=== PATIENT | female | born 1930 | race Caucasian/White ===

== ENCOUNTER 2016-12-10 20:19 | Emergency (ER) | payer OTHER ==
[~2016-12-10] VITALS: Ht 172.7 cm; Wt 72.4 kg
[~2016-12-10 20:19] MED LIST: ADULT LOW DOSE81 M1 PO; LIPITOR80 MG PO; METOPROLOL TART25 MG PO; OMEGA 3 1,0001 EACH PO; ZESTRIL,PRINIVI10 MG PO
[2016-12-10 23:40] VITALS: BP 190/88
== END 2016-12-10 23:41 | disposition home or self-care (01) ==
LOC: RME 20:19 → EME 20:19 → RME 23:41
PROC: 0HQGXZZ Repair Left Hand Skin, External Approach (ICD-10-PCS; principal; 2016-12-10)
DX: S61.215A Laceration without foreign body of left ring finger without damage to nail, initial encounter (principal); W29.3XXA Contact with powered garden and outdoor hand tools and machinery, initial encounter; Y93.H9 Activity, other involving exterior property and land maintenance, building and construction; Z91.048 Other nonmedicinal substance allergy status
CPT/HCPCS: 73140; 99281; 99284; S0020

== ENCOUNTER 2017-08-30 21:48 | Inpatient (IN) | payer OTHER ==
[~2017-08-30] VITALS: Ht 167.6 cm; Wt 53.7 kg
[~2017-08-30 21:48] MED LIST changes: +LISINOPRIL10 MG PO; -ZESTRIL,PRINIVI10 MG PO
[2017-08-30 23:08] LABS: HEMATOCRIT 39.9 % (36.0-46.0); HEMOGLOBIN 13.2 G/DL (11.9-15.5); MCH 31.1 PG (29.0-34.0); MCHC 33.1 G/DL (30.0-36.0); MCV 93.9 FL (83-99); PLATELET COUNT 234 K/uL (156-360); RBC DIS.WIDTH-CV 12.9 % (11.8-14.6); RBC DIS.WIDTH-SD 44.2 % (39-53); RED BLOOD COUNT 4.25 M/uL (3.80-5.20); WHITE BLOOD COUNT 15.5 K/uL (4.1-10.2)
[2017-08-30 23:30] LABS: CHLORIDE 102 MEQ/L (99-109); CREATININE 0.6 MG/DL (0.6-1.3); GFR ESTIMATE (CALCULATED) > 59 mL/min/; GLUCOSE 169 mg/dL (70-99); POTASSIUM 3.7 MEQ/L (3.7-5.4); SODIUM 138 MEQ/L (136-147); UREA NITROGEN (BUN) 13 mg/dL (9-23)
[2017-08-30 23:33] LABS: TROP-I INTERPRETATION NEGATIVE; TROPONIN-I 0.01 ng/mL (0.0-0.30)
[2017-08-31 00:49] LABS: ALKALINE PHOSPHATASE 213 IU/L (3-129); ALT (GPT) 169 IU/L (3-49); AST (GOT) 458 IU/L (2-34); DIRECT BILIRUBIN 0.3 mg/dL (0.0-0.3); LIPASE 30 U/L (1.0-51.0); TOTAL BILIRUBIN 0.8 MG/DL (0.0-1.0); TOTAL PROTEIN 6.4 G/DL (6.4-8.3)
[2017-08-31] MEDS ORDERED: SYNTHROID50 MCG PO (01:09)
[2017-08-31] MEDS ORDERED: PRAVACHOL20 MG PO (01:09)
[2017-08-31] MEDS ORDERED: ZANTAC150 MG PO (01:10)
[2017-08-31 01:22] LABS: TROP-I INTERPRETATION NEGATIVE; TROPONIN-I < 0.01 ng/mL (0.0-0.30)
[2017-08-31 05:41] VITALS: BP 173/75
[2017-08-31 08:00] VITALS: BP 124/56
[2017-08-31 08:45] LABS: HEMATOCRIT 37.5 % (36.0-46.0); HEMOGLOBIN 12.2 G/DL (11.9-15.5); MCH 30.2 PG (29.0-34.0); MCHC 32.5 G/DL (30.0-36.0); MCV 92.8 FL (83-99); PLATELET COUNT 218 K/uL (156-360); RBC DIS.WIDTH-CV 13.1 % (11.8-14.6); RBC DIS.WIDTH-SD 44.8 % (39-53); RED BLOOD COUNT 4.04 M/uL (3.80-5.20); WHITE BLOOD COUNT 13.4 K/uL (4.1-10.2)
[2017-08-31 09:08] LABS: CHLORIDE 102 MEQ/L (99-109); CREATININE 0.7 MG/DL (0.6-1.3); GFR ESTIMATE (CALCULATED) > 59 mL/min/; GLUCOSE 165 mg/dL (70-99); POTASSIUM 4.2 MEQ/L (3.7-5.4); SODIUM 133 MEQ/L (136-147); UREA NITROGEN (BUN) 13 mg/dL (9-23)
[2017-08-31 12:00] VITALS: BP 134/61
[2017-08-31 13:14] LABS: APPEARANCE SL.HAZY ((CLEAR)); BILIRUBIN NEGATIVE; BLOOD NEGATIVE; COLOR YELLOW ((YELLOW)); GLUCOSE (STRIP) NEGATIVE; KETONES NEGATIVE; LEUKOCYTES NEGATIVE; NITRITE NEGATIVE; PROTEIN (STRIP) NEGATIVE; SPECIFIC GRAVITY 1.033 (1.000-1.030); UROBILINOGEN 0.2 MG/DL (0.2-1.0)
[2017-08-31 14:06] LABS: AMORPHOUS PHOSPHATE CRYSTALS 2+; BACTERIA 1+ /HPF; EPITHELIAL CELLS 1+ /HPF; MUCUS NONE SEEN /LPF; RED BLOOD CELLS NONE SEEN /HPF (0-5); WHITE BLOOD CELLS 0-5 /HPF (0-5)
[2017-08-31 16:58] VITALS: BP 131/61
[2017-08-31 20:08] VITALS: BP 137/62
[2017-08-31 23:31] VITALS: BP 171/75
[2017-09-01 04:12] VITALS: BP 119/58
[2017-09-01 06:17] LABS: HEMOGLOBIN 11.2 G/DL (11.9-15.5); MCH 30.6 PG (29.0-34.0); MCV 95.6 FL (83-99); PLATELET COUNT 163 K/uL (156-360); RBC DIS.WIDTH-CV 13.3 % (11.8-14.6); RBC DIS.WIDTH-SD 46.6 % (39-53); RED BLOOD COUNT 3.66 M/uL (3.80-5.20); WHITE BLOOD COUNT 6.3 K/uL (4.1-10.2)
[2017-09-01 06:41] LABS: ALKALINE PHOSPHATASE 182 IU/L (3-129); ALT (GPT) 320 IU/L (3-49); AST (GOT) 370 IU/L (2-34); CHLORIDE 109 MEQ/L (99-109); CREATININE 0.8 MG/DL (0.6-1.3); GFR ESTIMATE (CALCULATED) > 59 mL/min/; UREA NITROGEN (BUN) 11 mg/dL (9-23)
[2017-09-01 06:43] LABS: GLUCOSE 81 mg/dL (70-99); SODIUM 140 MEQ/L (136-147); TOTAL BILIRUBIN 3.3 MG/DL (0.0-1.0); TOTAL PROTEIN 4.9 G/DL (6.4-8.3)
[2017-09-01 07:55] VITALS: BP 120/52
[2017-09-01 11:02] LABS: ANTI-HEPATITIS A VIRUS (IGM) Nonreactive; HEPATITIS B SURFACE ANTIGEN Nonreactive; HEPATITIS C ANTIBODY Nonreactive
[2017-09-01 11:04] LABS: ANTI-HEPATITIS B CORE (IGM) Nonreactive
[2017-09-01 12:02] VITALS: BP 132/61
[2017-09-01 16:24] VITALS: BP 132/62
[2017-09-01 19:50] VITALS: BP 140/67
[2017-09-01 23:57] VITALS: BP 159/70
[2017-09-02 07:16] LABS: ALBUMIN 3.3 G/DL (3.2-4.8); ALKALINE PHOSPHATASE 208 IU/L (3-129); ALKALINE PHOSPHATASE 211 IU/L (3-129); ALT (GPT) 216 IU/L (3-49); AST (GOT) 212 IU/L (2-34); AST (GOT) 215 IU/L (2-34); CHLORIDE 107 MEQ/L (99-109); CREATININE 0.8 MG/DL (0.6-1.3); DIRECT BILIRUBIN 0.6 mg/dL (0.0-0.3); GFR ESTIMATE (CALCULATED) > 59 mL/min/; GLUCOSE 120 mg/dL (70-99); POTASSIUM 4.5 MEQ/L (3.7-5.4); SODIUM 139 MEQ/L (136-147); TOTAL BILIRUBIN 1.2 MG/DL (0.0-1.0); TOTAL PROTEIN 5.3 G/DL (6.4-8.3); UREA NITROGEN (BUN) 15 mg/dL (9-23)
[2017-09-02 07:56] VITALS: BP 153/67
[2017-09-02] MEDS ORDERED: PANTOPRAZOLE SO40 MG PO (12:40)
== END 2017-09-02 15:33 | disposition home or self-care (01) | DRG 392 ==
LOC: EME → EDBD 21:48 → 5SOUTH 08-31 03:25 → EDOF 08-31 03:25 → ENRESERV 08-31 03:26 → 5SOUTH 08-31 05:16
PROVIDERS: Emergency Medicine; Hospitalist; Physician Assistant Medical; Specialist; Surgery
DX: K52.9 Noninfective gastroenteritis and colitis, unspecified (principal); I77.4 Celiac artery compression syndrome; K21.9 Gastro-esophageal reflux disease without esophagitis; E78.5 Hyperlipidemia, unspecified; E03.9 Hypothyroidism, unspecified; M81.0 Age-related osteoporosis without current pathological fracture; I10 Essential (primary) hypertension; I48.0 Paroxysmal atrial fibrillation; Z87.891 Personal history of nicotine dependence; J43.9 Emphysema, unspecified; I77.1 Stricture of artery; Z68.1 Body mass index [BMI] 19.9 or less, adult; R63.6 Underweight
CPT/HCPCS: 71046; 71275; 74174; 74183; 76705; 76775; 80048; 80053; 80074; 80076; 81003; 82948; 83605; 83690; 84484; 85027; 87040; 87086; 93005; 94799; 99281; 99285; J1644; J2405; J2543; J7030; J7050; S0030